=== PATIENT | male | born 1960 | race Caucasian/White ===

== ENCOUNTER 2017-05-23 05:56 | Day surgery (SDC) | payer MEDICARE, OTHER ==
[~2017-05-23] VITALS: Ht 165.1 cm; Wt 87.0 kg
[2017-05-23] MEDS ORDERED: TROPICAMIDE 1% 3ML OPH OPER SCH (06:00)
[2017-05-23] MEDS ORDERED: CYCLOPENTOLATE/PHENYLEPH 2 ML OPH OPER SCH (06:00)
[2017-05-23] MEDS ORDERED: DICLOFENAC 0.1% 2.5 ML OPH OPER SCH (06:00)
[2017-05-23] MEDS ORDERED: CIPROFLOXACIN 0.3% 2.5 ML OPH OPER SCH (06:00)
[2017-05-23 06:35] VITALS: Ht 165.1 cm; Wt 87.0 kg
[2017-05-23 06:39] VITALS: BP 169/103; PULSE 65; RESP 18
[2017-05-23] MEDS ORDERED: GENTAMICIN 80 MG INJ ONE (06:43)
[2017-05-23] MEDS ORDERED: CEFAZOLIN 1 GM INJ ONE (06:43)
[2017-05-23] MEDS ORDERED: LIDOCAINE 4% (MPF) 5 ML INJ ONE (06:43)
[2017-05-23] MEDS ORDERED: CARBACHOL 0.01% 1.5 ML OPH INJ ONE (06:43)
[2017-05-23] MEDS ORDERED: DEXAMETHASONE 4 MG/ML 1 ML INJ ONE (06:44)
[2017-05-23] MEDS ORDERED: EPINEPHrine 1 MG INJ ONE (06:44)
[2017-05-23] MEDS ORDERED: PROPOFOL 20 ML ONE (06:44)
[2017-05-23] MEDS ORDERED: LIDOCAINE 100 MG SYRINGE ONE (06:44)
[2017-05-23] MEDS ORDERED: COMBIG5 RIGHT EYE (06:50)
[2017-05-23] MEDS ORDERED: LISI20TA11 PO (06:50)
[2017-05-23] MEDS ORDERED: [UNRECOGNIZED DRUG - CODE] TL (06:50)
[2017-05-23] MEDS ORDERED: GLIM2TAB PO (06:50)
[2017-05-23] MEDS ORDERED: LANT3I SC (06:50)
[2017-05-23] MEDS ORDERED: ATOR10TA65 PO (06:50)
[2017-05-23] MEDS ORDERED: CARBACHOL 0.01% 1.5 ML OPH INJ IO ONE (07:00)
[2017-05-23] MEDS ORDERED: HYDROmorphONE (0.2 MG/ML) 10ML SYG IV PRN ×3 (07:00)
[2017-05-23] MEDS ORDERED: EPHEDrine SULFATE 50 MG/5 ML SYG IV PRN (07:00)
[2017-05-23] MEDS ORDERED: DEXAMETHASONE 4 MG/ML 1 ML INJ INJ ONE (07:00)
[2017-05-23] MEDS ORDERED: ATROPINE 1 MG/10 ML SYRINGE IV PRN (07:00)
[2017-05-23] MEDS ORDERED: NA HYALURONATE/CHONDROITIN 0.5 ML SYG LEFT EYE ONE (07:00)
[2017-05-23] MEDS ORDERED: DIPHENHYDRAMINE 50 MG INJ IV PRN (07:00)
[2017-05-23] MEDS ORDERED: OXYCODONE/ACETAMINOPHEN (5/325) TAB PO PRN ×2 (07:00)
[2017-05-23] MEDS ORDERED: LABETALOL HCL 20MG INJ IV PRN (07:00)
[2017-05-23] MEDS ORDERED: morphine (1 MG/ML) 10ML SYRINGE IV PRN ×3 (07:00)
[2017-05-23] MEDS ORDERED: MEPERIDINE 25 MG INJ IV PRN (07:00)
[2017-05-23] MEDS ORDERED: CEFAZOLIN 1 GM INJ INJ ONE (07:00)
[2017-05-23] MEDS ORDERED: hydrALAzine 20 MG INJ IV PRN (07:00)
[2017-05-23] MEDS ORDERED: ONDANSETRON 4 MG INJ IV PRN (07:00)
[2017-05-23] MEDS ORDERED: MIDAZOLAM 1 MG/ML 2 ML INJ IV PRN (07:00)
[2017-05-23] MEDS ORDERED: FENTAnyl 50 MCG/ML VIAL IV PRN ×2 (07:00)
[2017-05-23] MEDS ORDERED: hydrALAzine 20 MG INJ ONE (07:49)
[2017-05-23] MEDS ORDERED: LABETALOL HCL 20MG INJ ONE (08:00)
[2017-05-23 08:09] VITALS: BP 149/86; PULSE 69; RESP 14
[2017-05-23 08:14] VITALS: BP 149/85; PULSE 70; RESP 12
[2017-05-23 08:19] VITALS: BP 148/87; PULSE 70; RESP 14
[2017-05-23 08:58] VITALS: BP 143/84; PULSE 71; RESP 71
--- NOTE | 2017-05-23 09:23 | SIPON ---
Date/Time of Note Date/Time of Note DATE: 05/23/17 TIME: 09:22 Operative Report Preoperative Diagnosis cataract os Postoperative Diagnosis same Operation/Procedure Performed cataract surgery Surgeon: MARIELENA COURTNEY MD Anesthesia Type: MAC Estimated Blood Loss: none Transfusion Required: no Specimen: none Grafts/Implants posterior chamber lens implant Complications: no MARIELENA COURTNEY MD May 23, 2017 09:23
== END 2017-05-23 09:20 | disposition home or self-care (01) ==
LOC: SDS 05:56
PROVIDERS: ATTEND Ophthalmology
DX: H26.9 Unspecified cataract (principal); I10 Essential (primary) hypertension; E78.5 Hyperlipidemia, unspecified; E09.3 Drug or chemical induced diabetes mellitus with ophthalmic complications; E09.42 Drug or chemical induced diabetes mellitus with neurological complications with diabetic polyneuropathy
CPT/HCPCS: 66984; 82962; J0171; J0360; J0690; J1100; J1580; J2001; V2632